=== PATIENT | female | born 1970 | race Two or more races ===

== ENCOUNTER 2020-11-15 12:30 | Emergency (ER) | payer OTHER ==
[~2020-11-15] VITALS: Ht 167.6 cm; Wt 93.3 kg
[2020-11-15 13:02] VITALS: BP 162/95
[2020-11-15] MEDS ORDERED: OXYcodone/APAP 5/325MG TABLET ONE (13:25)
[2020-11-15] MEDS ORDERED: KETOROLAC 30 MG/1 ML ONE (13:25)
[2020-11-15] MEDS ORDERED: OXYcodone/APAP 5/325MG TABLET PO ONE (13:30)
[2020-11-15] MEDS ORDERED: KETOROLAC 30 MG/1 ML IM ONE (13:30)
== END 2020-11-15 14:38 | disposition home or self-care (01) ==
LOC: ED 14:20
DX: G56.01 Carpal tunnel syndrome, right upper limb (principal); M25.531 Pain in right wrist; I10 Essential (primary) hypertension
CPT/HCPCS: 73110; 96372; 99283; J1885